=== PATIENT | female | born 2000 | race Caucasian/White ===

== ENCOUNTER 2022-07-21 10:24 | Emergency (ER) | payer OTHER, SELFPAY ==
[2022-07-21 11:10] VITALS: BP 131/73; PULSE 97; RESP 20; TEMP 36.8; O2SAT 98; BMI 34.4
--- NOTE | 2022-07-21 11:26 | EXP.UTC ---
Discharge Plan Disposition Patient Disposition: Home, Self-Care Condition: Good Prescriptions Prescriptions: New prednisone 10 mg tablet 10 mg PO BID 3 Days Qty: 6 0RF amoxicillin [amoxicillin] 500 mg tablet 500 mg PO TID 10 Days Qty: 30 0RF fmeymxizhggyqdo-yxeauzscu-OM [Bromfed DM] 2-30-10 mg/5 mL Syrup 5 ml PO Q6H PRN (Reason: Cough) Qty: 240 0RF Referrals Follow up/Referrals: Ethan George MD [Primary Care Provider] - See instructions Activity Restrictions/Add. Instructions Additional Instructions/Restrictions: Drink plenty of fluids. Take tylenol or ibuprofen for pain or fever. Take the medications as directed. Follow up with your regular doctor. GO TO THE ER FOR ANY WORSENING SYMPTOMS Clinical Impressions Clinical Impression: Pharyngitis Stand Alone Forms Stand Alone Forms: Work/School Release Instructions Patient Instructions: DI for Pharyngitis/Tonsillopharyngitis -- Adult Discharge ED Provider: Brodie Ochoa [facility] General Stated complaint: sore throat,ear pain Time Seen by Provider: 07/21/22 11:26 History of Present Illness Provider Complaint: She states that for the past 2 days she has had a very sore throat. she has had chills, but no documented fever. Related Data Previous Rx's Medication Instructions Recorded amoxicillin 500 mg tablet 500 mg PO TID 10 days #30 tabs 07/21/22 cydmmnuomrhxpwu-dogslakiajwwwal-YJ 5 ml PO Q6H PRN Cough #240 mL 07/21/22 2 mg-30 mg-10 mg/5 mL oral syrup (Bromfed DM) prednisone 10 mg tablet 10 mg PO BID 3 days #6 tabs 07/21/22 Allergies Allergy/AdvReac Type Severity Reaction Status Date / Time No Known Allergies Allergy Verified 07/21/22 11:41 [facility] Disclaimer: The information contained in this section may have been updated after the patient was seen, as this information can be updated by other users. Social History Smoking Status: Never smoker alcohol intake: never substance use type: denies use current occupational status: student Travel in the last 8 weeks: None household members: family housing: house ROS Obtained: Yes All systems reviewed & no additional complaints except as documented Constitutional Constitutional: Reports chills and Reports fever(s) Eyes Eyes: Denies eye discharge ENT Ears, Nose, Mouth, and Throat: Reports as per HPI Cardiovascular Cardiovascular: Denies chest pain Respiratory Respiratory: Denies chest congestion and Reports cough Gastrointestinal Gastrointestingal: Reports nausea; Denies abdominal pain, constipation, cramping, diarrhea or vomiting Musculoskeletal Musculoskeletal: Denies arthralgias Integumentary/Breasts Skin/Breast: Denies rash Neurologic Neurologic: Denies paresthesias Physical Exam General General appearance: alert and in no apparent distress Head Head exam: atraumatic, normocephalic and normal inspection Eye Eye exam: Present normal appearance, PERRL and EOMI ENT ENT exam: Present mucous membranes moist and normal external ear exam Expanded ENT Exam TM/Canal exam: Bilateral TM: erythema and bulging Nose exam: Absent sinus tenderness Mouth exam: Present normal external inspection; Absent drooling Teeth exam: Present normal inspection Throat exam: Present tonsillar erythema, tonsillomegaly and tonsillar exudate Neck Neck exam: Present normal inspection, full ROM and trachea midline; Absent tenderness, meningismus or lymphadenopathy Chest Chest inspection: Present normal inspection and symmetric chest wall rise; Absent tenderness Respiratory Respiratory exam: Present normal lung sounds bilaterally; Absent respiratory distress, wheezes or stridor Cardiovascular Cardiovascular exam: Present regular rate and normal rhythm; Absent systolic murmur or diastolic murmur Abdominal Exam Abdominal exam: Present soft and normal bowel sounds; Absent distention, tenderness, guarding, rebound or rigi
[2022-07-21 11:35] LABS: UTC Strep Screen (Rapid) Negative (Negative)
[2022-07-21 12:15] VITALS: BP 131/73; PULSE 97; RESP 20; TEMP 36.8; O2SAT 98
== END 2022-07-21 12:15 | disposition home or self-care (01) ==
PROVIDERS: Emergency Provider Nurse Practitioner Family; PCP Internal Medicine Adolescent Medicine
DX: J02.9 Acute pharyngitis, unspecified (principal)
CPT/HCPCS: 87880; 99212; G0463

== ENCOUNTER 2023-09-07 14:57 | Outpatient (CLI) | payer OTHER, SELFPAY ==
[2023-09-07 15:15] LABS: Basophils # 0.1 K/mm3 (0-0.2); Eosinophils # 0.2 K/mm3 (0.0-0.4); Eosinophils % 1.7 % (0.1-12.0); Hematocrit 45.2 % (37.0-47.0); Hemoglobin 14.9 g/dL (12.2-16.2); Lymphocytes # 2.6 K/mm3 (0.7-4.5); Lymphocytes % 23.2 % (10-50); Mean Corpuscular HGB Conc 32.9 g/dL (31.8-35.4); Mean Corpuscular Hemoglobin 30.5 pg (27.0-31.2); Mean Corpuscular Volume 92.7 fl (81-99); Mean Platelet Volume 7.8 fl (7.4-10.4); Monocytes # 0.4 K/mm3 (0.1-1.0); Monocytes % 3.8 % (1.7-9.3); Neutrophils # 7.9 K/mm3 (1.8-7.8); Neutrophils % 70.4 % (37.0-80.0); Platelet Count 320 K/mm3 (142-424); Red Blood Count 4.88 M/mm3 (4.20-5.40); Red Cell Distribution Width 13.2 % (11.5-17.5); White Blood Count 11.2 K/mm3 (4.5-13.0)
[2023-09-07 16:06] LABS: Alanine Aminotransferase 19 U/L (12-78); Albumin Level 4.5 g/dl (3.5-5.0); Albumin/Globulin Ratio 1.7 (1.1-1.8); Alkaline Phosphatase 73 U/L (38-126); Aspartate Amino Transferase 24 U/L (14-36); Bilirubin,Total 0.4 mg/dl (0.2-1.3); Blood Urea Nitrogen 12 mg/dl (7-17); Calcium 9.4 mg/dl (8.4-10.2); Carbon Dioxide 29 mmol/L (22.0-30.0); Chloride 105 mmol/L (98-107); Estimated Glomerular Filt Rate 91 ml/min (>60); GFR (African American) 111 ML/MIN (>60); Globulin 2.6 g/dL (1.3-3.2); Glucose 97 mg/dl (74-100); Sodium 140 mmol/L (136-145); Total Protein,Serum 7.1 g/dl (6.3-8.2)
[2023-09-07 16:24] LABS: HCG,Quantitative < 2 mIU/ml (0-5.42)
== END 2023-09-07 23:59 ==
LOC: LAB 14:58
PROVIDERS: PCP Internal Medicine Adolescent Medicine; Visit Provider Obstetrics & Gynecology
DX: N89.8 Other specified noninflammatory disorders of vagina (principal)
CPT/HCPCS: 36415; 80053; 84702; 85025

== ENCOUNTER 2023-09-11 10:30 | Day surgery (SDC) | payer OTHER, SELFPAY ==
[2023-09-08 16:01] VITALS: BMI 32.6
[2023-09-11] MEDS: LACTATED RINGERS 1000ML 1,000 ML 25 ML IV (10:38)
[2023-09-11 10:41] VITALS: BP 131/72; PULSE 91; RESP 18; TEMP 36.3; O2SAT 96
[2023-09-11 12:00] VITALS: BP 112/64; PULSE 89; RESP 16; TEMP 36.2; O2SAT 96
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
[2023-09-11 12:10] VITALS: BP 113/69; PULSE 86; RESP 16; O2SAT 99
[2023-09-11 12:20] VITALS: BP 103/82; PULSE 81; RESP 16; O2SAT 99
== END 2023-09-11 12:23 | disposition home or self-care (01) ==
PROVIDERS: PCP Internal Medicine Adolescent Medicine; Visit Provider Obstetrics & Gynecology
PROC: (CPT 56700; principal; 2023-09-11 12:00)
DX: S31.41XA Laceration without foreign body of vagina and vulva, initial encounter (principal)
CPT/HCPCS: 56700

== ENCOUNTER 2025-01-08 21:12 | Emergency (ER) | payer MEDICAID, SELFPAY ==
--- OUTSIDE RECORDS SUMMARY | 2025-01-08 21:25 | XMS_ITS | Clinical Summary ---
[facility] [address] [place] [address] Care Team Providers Care Serials Librarian Name Role Phone Ethan George MD Primary Care Provider [phone] Allergies No known active allergies Medications fluticasone (Flonase) 50 MCG/ACT nasal sprayIndication s:Viral upper respiratory tract infection 2 puffs each nostril daily 16 g 2 022 Discontinued Social History Tobacco Use Types Packs/Day Years Used Date Smoking Tobacco: Never Smokeless Tobacco: Never Tobacco Cessation:Counseling Given: Not Answered Alcohol Use Standard Drinks/Week Comments Never 0 (1 standard drink = 0.6 oz pur e alcohol) Abuse Screen Answer Date Recorded Unsafe at Home or Work/School Not on file Feels Threatened by Someone? Not on file Does Anyone Keep You from Co ntacting Others or Doint Things Outside the Home? Not on file 03/27/2023 Physical Sign of Abuse Present Not on file 1 Housing Stability Answer Date Recorded Current Living Arrangements Not on file 03/15 Potentially Unsafe Housing Conditions Not on wm e 03/27/2023 Family and Community Support Answer Marko e Recorded Help with Day-to-Day Activities Not on file 03/27/2023 Lonely or Isolated Not on file 03/27/2023 Employment Answer Date Recorded Do you want help finding or keeping work or a walter b? Not on file 03/27/2023 Disabilities Answer Date Recorded Concentrating, Remembering, or Making Decisions Difficulty Not on file 03/27/2023 Doing Errands Independently Difficulty Not on fi le 03/27/2023 Education Answer Date Recorded Help with school or training? Not on file Preferred Language Not on file 03/27/2023 Comments No Sex and Gender Information Value Date Recorded Sex Assigned at Not on file Legal Sex Female 12:30 PM EDT Gender Identity Not on file Sexual Orientation Not on file Last Filed Vital Signs Vital Sign Reading Time Taken Comments Blood Pressure 135/75 05/02/2022 7:33 PM EST Pulse 104 05/02/2022 7:33 PM EST Temperature 37 C (98.6 F) 05/02/2022 7:33 PM EST Respiratory Rate 18 05/02/2022 7:33 PM EST Oxygen Saturation 98% 05/02/2022 7:33 PM EST Inhaled Oxygen Concentration - - Weight 99.8 kg (220 lb) 05/02/2022 7:33 PM EST Height 172.7 cm (5' 8 ) 05/02/2022 7:33 PM EST Body Mass Index 33.45 05/02/2022 7:33 PM EST Plan of Treatment Health Maintenance Due Date Last Done Comments Annual Gynecologic Pelvic and Breast Exam 2002 MENINGOCOCCAL B VACCINE (1 of 2 - Standard) 2018 ANNUAL PHYSICAL 10/09/2021 HEPATITIS C SCREENING 10/09/2021 TDAP/TD VACCINES (2 - Td or Tdap) 11/10/2023 11/09/2013 COVID-19 Vaccine (3 - season) 2024 11/21/2020, 10/31/2020 INFLUENZA VACCINE 03/15/2025 Pneumococcal Vaccine 0-49 Aged Out 2005, 05/30/2003, 03/14/2003, Additional history exists No longer eligible based on patient's age to complete this topic HPV VACCINES Completed 07/16/2017, 11/28/2016 MENINGOCOCCAL VACCINE Completed 03/25/2019 Insurance [place] [id number] [facility] Care Teams Serials Librarian Relationship Specialty Start Date End Date Ethan George MD [facility] [place] [address] [address] [facility] [place] [id number] PCP - General Adolescent Medicine 09/12/21
--- NOTE | 2025-01-08 21:28 | CT_ITS ---
PROCEDURE INFORMATION: Exam: CTA Head With Contrast, Arteriography Exam date and time: 01/08/2025 10:21 PM Age: 24 years old Clinical indication: Pain; Headache; Additional info: Sudden JO, neck pain TECHNIQUE: Imaging protocol: Computed tomographic angiography of the head with contrast. Exam focused on the arteries. 3D rendering (Not supervised by radiologist): MIP and/or 3D reconstructed images were created by the technologist. Radiation optimization: All CT scans at this facility use at least one of these dose optimization techniques: automated exposure control; mA and/or kV adjustment per patient size (includes targeted exams where dose is matched to clinical indication); or iterative reconstruction. Contrast material: ISOVUE; Contrast volume: 80 ml; Contrast route: INTRAVENOUS (IV); COMPARISON: CT HEAD/BRAIN WO CON 01/08/2025 10:20 PM FINDINGS: ANTERIOR CIRCULATION: Right internal carotid artery: Intracranial segment is patent with no significant stenosis. No aneurysm. Right middle cerebral artery: No occlusion or significant stenosis. No aneurysm. Right anterior cerebral artery: No occlusion or significant stenosis. No aneurysm. Left internal carotid artery: Intracranial segment is patent with no significant stenosis. No aneurysm. Left middle cerebral artery: No occlusion or significant stenosis. No aneurysm. Left anterior cerebral artery: No occlusion or significant stenosis. No aneurysm. POSTERIOR CIRCULATION: Right vertebral artery: No occlusion or significant stenosis. No aneurysm. Left vertebral artery: No occlusion or significant stenosis. No aneurysm. Basilar artery: No occlusion or significant stenosis. No aneurysm. Right posterior cerebral artery: No occlusion or significant stenosis. No aneurysm. Left posterior cerebral artery: No occlusion or significant stenosis. No aneurysm. Brain: No definite mass, mass effect, or midline shift. Cerebral ventricles: No ventriculomegaly. Bones/joints: Unremarkable. No acute fracture. Soft tissues: Unremarkable. IMPRESSION: No large vessel stenosis or occlusion.
--- NOTE | 2025-01-08 21:28 | CT_ITS ---
PROCEDURE INFORMATION: Exam: CT Head Without Contrast Exam date and time: 01/08/2025 10:20 PM Age: 24 years old Clinical indication: Pain; Headache; Additional info: Sudden JO, neck pain TECHNIQUE: Imaging protocol: Computed tomography of the head without contrast. Radiation optimization: All CT scans at this facility use at least one of these dose optimization techniques: automated exposure control; mA and/or kV adjustment per patient size (includes targeted exams where dose is matched to clinical indication); or iterative reconstruction. COMPARISON: No relevant prior studies available. FINDINGS: Brain: No hemorrhage. Unremarkable white matter. No mass effect. Cerebral ventricles: No ventriculomegaly. Paranasal sinuses: Mucous retention cyst in the left maxillary sinus. No fluid levels. Mastoid air cells: Visualized mastoid air cells are well aerated. Bones: Unremarkable. No acute fracture. Soft tissues: Unremarkable. IMPRESSION: No acute intracranial abnormality.
--- NOTE | 2025-01-08 21:28 | CT_ITS ---
PROCEDURE INFORMATION: Exam: CTA Neck With Contrast Exam date and time: 01/08/2025 10:21 PM Age: 24 years old Clinical indication: Pain; Headache; Additional info: Sudden JO, neck pain TECHNIQUE: Imaging protocol: Computed tomographic angiography of the neck with contrast. Exam focused on the cervical segments of the vasculature. 3D rendering (Not supervised by radiologist): MIP and/or 3D reconstructed images were created by the technologist. Radiation optimization: All CT scans at this facility use at least one of these dose optimization techniques: automated exposure control; mA and/or kV adjustment per patient size (includes targeted exams where dose is matched to clinical indication); or iterative reconstruction. Contrast material: ISOVUE; Contrast volume: 80 ml; Contrast route: INTRAVENOUS (IV); COMPARISON: CT ANGIO NECK 01/08/2025 10:21 PM FINDINGS: Right common carotid artery: No stenosis. No dissection or occlusion. Right internal carotid artery: No stenosis of the extracranial segment. No dissection or occlusion. Right external carotid artery: No occlusion or stenosis of the origin. Left common carotid artery: No stenosis. No dissection or occlusion. Left internal carotid artery: No stenosis of the extracranial segment. No dissection or occlusion. Left external carotid artery: No occlusion or stenosis of the origin. Right vertebral artery: No stenosis. No dissection or occlusion. Left vertebral artery: No stenosis. No dissection or occlusion. Soft tissues: Normal. No significant soft tissue swelling. Bones/joints: No acute fracture. IMPRESSION: No stenosis or occlusion. REFERENCES: NASCET CRITERIA. The degree of stenosis in the cervical segment of the internal carotid artery is based on NASCET criteria. Normal is no stenosis. Mild is less than 50% stenosis. Moderate is 50-69% stenosis. Severe is 70% to 99% stenosis. Total occlusion is no detectable patent lumen.
[2025-01-08 21:30] VITALS: BP 130/88; PULSE 106; RESP 22; TEMP 36.6; O2SAT 99; BMI 37.2
--- NOTE | 2025-01-08 21:31 | HMH.EDGENADL ---
Discharge Plan Disposition Patient Disposition: Home, Self-Care Prescriptions Prescriptions: No Action No Known Home Medications Referrals Follow up/Referrals: Ethan George MD [Primary Care Provider, Internal Medicine] - See instructions Activity Restrictions/Add. Instructions Additional Instructions/Restrictions: Your CAT scans were unremarkable and your blood work also were unremarkable today. Given the fact that you felt so much better symptoms have been going on for 3 days labs are reassuring CAT scans were unremarkable with shared decision making we opted to not pursue a lumbar puncture. As discussed we cannot definitively rule out viral meningitis but this is low likelihood at the moment. Please return with any persistent or worsening headache neck stiffness or fever. You may take Tylenol and ibuprofen and drink plenty of fluids. Your viral panel is pending please follow-up on your portal or call in several hours to get the test results from that. Clinical Impressions Clinical Impression: Headache, Fever Print Language Print Language: Kinyarwanda Discharge ED Provider: Wale Bass General Adult HPI General Chief complaint: Headache Stated complaint: headache,dizzyness,back pain ,stiffness Time Seen by Provider: 01/08/25 21:18 History of Present Illness HPI narrative: Patient is a 24-year-old female presents today with a headache that is been ongoing for 3 days that she states will go away. She denies having history of headaches or migraines. She self endorses that she has had some neck stiffness and some dizziness with turning her head left and right. States the headache began relatively suddenly and has not gotten better since that time. Denies any other neurologic symptoms. She does states she had a fever of 101.8 earlier today after which she took ibuprofen. No sore throat no ear pain no cough no rashes no other infectious symptoms that she is aware of. Related Data Home Medications ?Medication ?Instructions ?Recorded ?Confirmed No Known Home Medications 09/08/23 01/08/25 Allergies Allergy/AdvReac Type Severity Reaction Status Date / Time No Known Allergies Allergy Verified 09/25/23 11:15 [facility] Disclaimer: The information contained in this section may have been updated after the patient was seen, as this information can be updated by other users. Medical History (Updated 01/08/25 @ 21:31 by Wale Bass MD) Asthma Hymenal tear Surgical History (Updated 09/25/23 @ 11:15 by JOHN Turner) History of hymenectomy Family History Other Asthma Cancer Coronary artery disease Diabetes FHx: mental illness Heart attack Substance abuse Social History Smoking Status: Current every day smoker tobacco type: e-cigarettes and smokeless tobacco alcohol intake: never substance use type: denies use current occupational status: student Travel in the last 8 weeks?: None household members: family housing: house Have you lived/traveled outside [place] in past 30 days?: No Contact w/someone who lives/traveled outside US past 30 days?: No Exposure to someone with infectious disease in past 14 days?: No Do you have a fever (greater than 100.4 F or 38 C)?: No Have you tested positive for COVID-19?: No Exposed to someone with COVID-19 in past 14 days?: No Do you have a sore throat?: No Do you have a cough?: No Do you have any weakness?: No Do you have any diarrhea?: No Are you experiencing any unusual bleeding?: No Do you have any muscle aches/pain?: No Do you have any abdominal pain?: No Are you experiencing loss of taste or smell?: No Other Medical History Have you received the Pneumonia Vaccine: No ROS Obtained: Yes All systems reviewed & no additional complaints except as documented Physical Exam General General appearance: alert and in no apparent distress ENT ENT exam: Present normal oropharynx Neck Neck exam: Present full ROM; Absent meningismus Respiratory Respiratory exam: Present normal lung sounds bilaterally Cardiovascular Cardiovascular exam: Present tachycardia Neurological Exam Neurological exam: Present alert, oriented X3, CN II-XII intact and normal gait; Absent motor sensory deficit Medical Decision Making Medical Records Screening: Per USPSTF and CDC recommendations, given the prevalence of disease in our region, it is our hospital?s policy to screen for HIV and viral Hepatitis for all patients aged 18 and over and those with ongoing risk factors. Dmitry Inquiry Pt receiving controlled substance: No Vital Signs: 01/08/25 21:30 Temperature 97.8 F Temperature Source Oral Pulse Rate [Right] 106 H Respiratory Rate 22 Blood Pressure [Right Arm] 130/88 Blood Pressure Mean [Right Arm] 102 02 Sat by Pulse Oximetry 99 Oxygen Delivery Method Room Air Lab Data Lab results reviewed: Yes I reviewed the patient's lab results. Lab Results 01/08/25 21:32: WBC 6.2, RBC 5.07, Hgb 14.8, Hct 42.8, MCV 84.4, MCH 29.2, MCHC 34.6, RDW 12.2, Plt Count 215, MPV 8.3, Neut % (Auto) 64.9, Lymph % (Auto) 28.1, [place] % (Auto) 6.1, Eos % (Auto) 0.2, Baso % (Auto) 0.5, Neut # (Auto) 4.0, Lymph # (Auto) 1.7, [place] # (Auto) 0.4, Eos # (Auto) 0.0, Baso # (Auto) 0.0, Sodium 133 L, Potassium 3.2 L, Chloride 99, Carbon Dioxide 24, Anion Gap 13.2, BUN 6 L, Creatinine 0.70, Estimated Creat Clear 221, Estimated GFR 105, Est GFR ( Amer) 127, Glucose 103 H, Calcium 9.4, Total Bilirubin 0.7, AST 32, ALT 26, Alkaline Phosphatase 92, Total Protein 8.2, Albumin 4.8, Globulin 3.4 H, Albumin/Globulin Ratio 1.4, Serum HCG, Qual Negative, HCV Ab DOMONIQUE w/Rflx PCR Qn Negative, HIV Ag/Ab Combo Qual Negative 01/08/25 21:32 01/08/25 21:32 Orders (Tests/Meds): ED MEDICATIONS Discontinued Medications Generic Name Dose Route Start Last Admin Trade Name Freq PRN Reason Stop Dose Admin Acetaminophen 1,000 mg 01/08/25 21:28 01/08/25 21:39 Acetaminophen 1,000mg/100ml Vial IV 01/08/25 21:29 1,000 mg ONCE ONE Administration Diphenhydramine HCl 25 mg 01/08/25 21:28 01/08/25 21:39 Diphenhydramine 50mg/Ml Vial IV 01/08/25 21:29 25 mg ONCE ONE Administration Lactated Ringer's 1,000 mls @ 999 mls/hr 01/08/25 21:30 01/08/25 21:39 Lactated Ringer's 1000 Ml Bag IV 01/08/25 22:30 999 mls/hr .Q1H1M LETTY Administration Iopamidol 80 ml 01/08/25 22:19 01/08/25 22:21 Iopamidol-370 (76%);100ml Bottle IV 01/08/25 22:20 80 ml ONCE ONE Administration Prochlorperazine Edisylate 10 mg 01/08/25 21:28 01/08/25 21:39 Prochlorperazine 10mg/2ml Vial IV 01/08/25 21:29 10 mg ONCE ONE Administration Sodium Chloride 50 ml 01/08/25 22:19 01/08/25 22:20 0.9 % Sodium Chloride 50 Ml Vial IV 01/08/25 22:20 50 ml ONCE ONE Administration Sodium Chloride 10 ml 01/08/25 22:19 01/08/25 22:20 Sodium Chloride 0.9% 10ml Syr (Rad Only) IV 01/08/25 22:20 10 ml ONCE ONE Administration ORDERS Category Date Time Status CT angio head Stat Cat Scan 01/08/25 21:[address] angio neck Stat Cat Scan 01/08/25 21:[address] head/brain wo con Stat Cat Scan 01/08/25 21:28 Completed CBC w/Auto Diff [Complete Blood Count Auto Diff] Stat Lab 01/08/25 21:32 Completed CMP [Comprehensive Metabolic Panel] Stat Lab 01/08/25 21:32 Completed Full Resp Panel w/COVID (H) Routine Lab 01/08/25 21:59 Received HCG Qualitative, Serum Stat Lab 01/08/25 21:32 Completed HIV Combo Stat Lab 01/08/25 21:32 Completed Hepatitis C Ab Qual. W/ RFX Stat Lab 01/08/25 21:32 Completed Blood Culture Stat Micro 01/08/25 21:51 Received Medical Decision Narrative: 24-year-old with above history and physical she has had 3 days of headache. Described a fever neck stiffness and states that the headache began suddenly differential was broad and the sudden component of the headache and a neck stiffness and fever are concerning as well. We did CT scan of the patient's head without contrast and CT angio of the head and neck to evaluate for possible aneurysms or vascular dissections. Her neurologic exam is normal right now. Additionally she has no meningismus on my exam. Given the fact that she is 3 days out if she had any type of subarachnoid blood it would be isodense at this point and if there is no aneurysm will not proceed with a lumbar puncture purely for that indication. Number needed to treat would be excessive if there is no obvious vascular dissection or aneurysm to rule out subarachnoid hemorrhage. Brain tumors etc. are also on the differential. Most likely this is a viral syndrome especially given the fact that she is accompanied by her sibling who is here in the ER as well for sore throat. Most concern only however would be encephalitis or meningitis. Patient is very well-appearing on my exam has no meningismus clinically but this remains in the differential. Very unlikely to be bacterial 3 days into symptoms that she would be most likely much more serious. She is up-to-date on vaccinations. Viral meningitis certainly is on the differential however. I discussed with the family at the moment we will get CT scan give medications and reassess. Additionally we do not have meningeal encephalitis PCR panel here and it may prompt a transfer if we are to proceed with lumbar puncture. All this will need to be taken into consideration we talked to the family and have shared decision making. Reassessment 11:33 PM patient feeling much better serial neurologic exams are normal patient still has no meningismus looks very nontoxic and well-appearing on my exam. She continues to be afebrile. No other signs or symptoms of systemic infection on her labs. However given the fact that she presented with headache fever at home and self endorsed neck stiffness viral meningitis certainly remains on the differential. It is very unlikely she has bacterial meningitis. I had extensive discussion with her regarding the risk and benefits of lumbar puncture and at the moment she would like to hold off on a lumbar puncture mainly because she is getting in a few days. I felt that this was reasonable given how good she looks. She and her entire family understand that I cannot rule out meningitis at the moment therefore they understand there is some risk and not doing a test. CT scans were performed which I personally interpreted shows no evidence of any intra cranial or vascular pathology radiology read is consistent with this as well specifically no evidence of an aneurysm or vascular dissection. Patient felt much better and was discharged in improved and stable condition with strict return return precautions if she worsens at all to return to the emergency department. Critical Care Critical Care Time Critical Care Time: No
[2025-01-08] MEDS: LACTATED RINGERS 1000ML 1,000 ML 999 ML IV (21:39)
[2025-01-08] MEDS: ACETAMINOPHEN 1,000MG/100ML VIAL 1000 MG IV (21:39)
[2025-01-08] MEDS: PROCHLORPERAZINE 10MG/2ML VIAL 10 MG IV (21:39)
[2025-01-08 21:49] LABS: Hematocrit 42.8 % (37.0-47.0); Hemoglobin 14.8 g/dL (12.2-16.2); Immature Granulocytes % 0.2 %; Mean Corpuscular HGB Conc 34.6 g/dL (31.8-35.4); Mean Corpuscular Hemoglobin 29.2 pg (27.0-31.2); Mean Corpuscular Volume 84.4 fl (81-99); Nucleated Red Blood Cells % 0 %; Platelet Count 215 K/mm3 (142-424); Red Blood Count 5.07 M/mm3 (4.20-5.40); Red Cell Distribution Width-SD 37.2 fL; White Blood Count 6.2 K/mm3 (4.8-10.8)
[2025-01-08 22:02] LABS: Albumin Level 4.8 g/dl (3.5-5.0); Chloride 99 mmol/L (98-107); Potassium 3.2 mmoL/L (3.5-5.1); Sodium 133 mmol/L (136-145)
[2025-01-08 22:03] LABS: HCG Qualitative, Serum Negative (Negative)
[2025-01-08 22:04] LABS: Adenovirus,PCR Not Detected (NotDetected); Coronovirus HKU1,PCR Not Detected (NotDetected); Influenza A, PCR Not Detected (NotDetected); Influenza AH1, 2009 Not Detected (NotDetected); Influenza AH1, PCR Not Detected (NotDetected); Influenza AH3,PCR Not Detected (NotDetected); Influenza B, PCR Not Detected (NotDetected); Parainfluenza 1, PCR Not Detected (NotDetected); Parainfluenza 2, PCR Not Detected (NotDetected); Parainfluenza 3, PCR Not Detected (NotDetected); Parainfluenza 4, PCR Not Detected (NotDetected)
[2025-01-08 22:04] LABS: Blood Urea Nitrogen 6 mg/dl (7-17); Creatinine Clearance Estimated 221 mL/min (50-200); Creatinine,Serum 0.70 mg/dl (0.52-1.04); Estimated Glomerular Filt Rate 105 ml/min (>60); GFR (African American) 127 ML/MIN (>60)
[2025-01-08 22:05] LABS: Chlamydophila Pneumoniae, PCR Not Detected (NotDetected); Coronavirus 19, PCR Not Detected (NotDetected); Mycoplasma Pneumoniae, PCR Not Detected (NotDetected)
[2025-01-08 22:05] LABS: Alanine Aminotransferase 26 U/L (12-78); Albumin/Globulin Ratio 1.4 (1.1-1.8); Alkaline Phosphatase 92 U/L (38-126); Anion Gap 13.2 mEq/L (5-15); Aspartate Amino Transferase 32 U/L (14-36); Bilirubin,Total 0.7 mg/dl (0.2-1.3); Calcium 9.4 mg/dl (8.4-10.2); Carbon Dioxide 24 mmol/L (22.0-30.0); Globulin 3.4 g/dL (1.3-3.2); Glucose 103 mg/dl (74-100); Total Protein,Serum 8.2 g/dl (6.3-8.2)
[2025-01-08] MEDS: 0.9 % SODIUM CHLORIDE 50 ML VIAL IV (22:20)
[2025-01-08] MEDS: SODIUM CHLORIDE 0.9% 10ML SYR (RAD ONLY) 10 ML IV (22:20)
[2025-01-08] MEDS: IOPAMIDOL-370 (76%);100ML BOTTLE 80 ML IV (22:21)
[2025-01-08 22:54] LABS: Hepatitis C Ab Qual. W/ RFX NEGATIVE (Negative)
[2025-01-08 23:47] VITALS: BP 130/88; PULSE 86; RESP 20; TEMP 36.7; O2SAT 97
== END 2025-01-08 23:53 | disposition home or self-care (01) ==
PROVIDERS: Emergency Provider Student in an Organized Health Care Education/Training Program; PCP Internal Medicine Adolescent Medicine
DX: R51.9 Headache, unspecified (principal); R50.9 Fever, unspecified
CPT/HCPCS: 0223U; 70450; 70496; 70498; 80053; 84703; 85025; 86803; 87040; 87389; 87633; 96361; 96374; 96375; 99285; J0131; J0780; J1200; J7120; Q9967

== ENCOUNTER 2025-04-13 09:21 | Outpatient (CLI) | payer MEDICAID, SELFPAY ==
--- OUTSIDE RECORDS SUMMARY | 2025-04-13 09:48 | XMS_ITS | Clinical Summary ---
[facility] [address] [place] [address] Care Team Providers Care Medical Authorization Specialist Name Role Phone Ethan Geogre MD Primary Care Provider [phone] Allergies No known active allergies Medications fluticasone [...] (2 - Td or Tdap) 11/10/2023 11/09/2013 INFLUENZA VACCINE 01/13/2025 Pneumococcal Vaccine 0-49 Aged Out 2005, 05/30/2003, 03/14/2003, Additional history exists No longer eligible based on patient's age to complete this topic HPV VACCINES Completed 07/16/2017, 11/28/2016 MENINGOCOCCAL VACCINE Completed 03/25/2019 [place] [address] [employer] [facility] Care Teams Medical Authorization Specialist Relationship Specialty Start Date End Date Ethan George MD [address] [place] [facility] [address] [facility] [id number] PCP - General Adolescent Medicine 09/12/21
== END 2025-04-13 23:59 | disposition home or self-care (01) ==
LOC: LAB 09:23
PROVIDERS: PCP Internal Medicine Adolescent Medicine; Visit Provider Obstetrics & Gynecology
DX: Z34.90 Encounter for supervision of normal pregnancy, unspecified, unspecified trimester (principal); Z3A.00 Weeks of gestation of pregnancy not specified
CPT/HCPCS: 36415; 84144; 84702

== ENCOUNTER 2025-05-23 14:11 | Outpatient (CLI) | payer MEDICAID, SELFPAY ==
[2025-05-23 14:40] LABS: Hematocrit 38.7 % (37.0-47.0); Hemoglobin 13.2 g/dL (12.2-16.2); Immature Granulocytes % 0.4 %; Mean Corpuscular HGB Conc 34.1 g/dL (31.8-35.4); Mean Corpuscular Hemoglobin 29.3 pg (27.0-31.2); Mean Corpuscular Volume 85.8 fl (81-99); Nucleated Red Blood Cells % 0 %; Platelet Count 277 K/mm3 (142-424); Red Blood Count 4.51 M/mm3 (4.20-5.40); Red Cell Distribution Width-SD 39.4 fL; White Blood Count 12.1 K/mm3 (4.8-10.8)
[2025-05-23 15:33] LABS: RPR W/RFX Titers Nonreactive (Nonreactive)
[2025-05-23 16:14] LABS: Hepatitis C Ab Qual. W/ RFX NEGATIVE (Negative)
[2025-05-25 06:33] LABS: Hepatitis B Surface Antigen Negative (Negative)
[2025-05-25 08:14] LABS: Rubella Antibodies, IgG 5.25 index (Immune >0.99)
== END 2025-05-23 23:59 | disposition home or self-care (01) ==
LOC: LAB 14:12
PROVIDERS: PCP Internal Medicine Adolescent Medicine; Visit Provider Obstetrics & Gynecology
DX: Z34.91 Encounter for supervision of normal pregnancy, unspecified, first trimester (principal); Z3A.00 Weeks of gestation of pregnancy not specified
CPT/HCPCS: 36415; 85025; 86592; 86762; 86787; 86803; 86850; 87340; 87389